=== PATIENT | male | born 1995 | race Two or more races ===

== ENCOUNTER 2016-09-16 15:02 | Emergency (ER) | payer MEDICAID ==
[~2016-09-16] VITALS: Ht 167.6 cm; Wt 61.2 kg
[2016-09-16 16:45] VITALS: BP 152/74
== END 2016-09-16 18:25 | disposition home or self-care (01) ==
LOC: ER 15:04
DX: S90.111A Contusion of right great toe without damage to nail, initial encounter (principal); W51.XXXA Accidental striking against or bumped into by another person, initial encounter; Y93.89 Activity, other specified; Y99.8 Other external cause status; Y92.89 Other specified places as the place of occurrence of the external cause
CPT/HCPCS: 73630

== ENCOUNTER 2016-12-27 22:37 | Emergency (ER) | payer MEDICAID ==
[~2016-12-27] VITALS: Ht 167.6 cm; Wt 63.5 kg
[2016-12-27 22:54] VITALS: BP 131/84
[2016-12-28] MEDS ORDERED: IBUPROFEN 600 MG TAB PO ONE (03:15)
[2016-12-28] MEDS ORDERED: CYCLOBENZAPRINE HCL 10 MG TAB PO ONE (03:15)
== END 2016-12-28 04:15 | disposition home or self-care (01) ==
LOC: ER 22:37
DX: S92.424A Nondisplaced fracture of distal phalanx of right great toe, initial encounter for closed fracture (principal); S30.0XXA Contusion of lower back and pelvis, initial encounter; W18.39XA Other fall on same level, initial encounter; Y93.89 Activity, other specified; Y92.89 Other specified places as the place of occurrence of the external cause; Y99.8 Other external cause status; Y93.66 Activity, soccer
CPT/HCPCS: 72100; 73620

== ENCOUNTER 2021-07-11 15:24 | Emergency (ER) | payer MEDICAID ==
[~2021-07-11] VITALS: Ht 167.6 cm; Wt 68.0 kg
[2021-07-11 20:25] VITALS: BP 141/90
== END 2021-07-11 20:36 | disposition home or self-care (01) ==
LOC: ER 15:24
DX: S93.502A Unspecified sprain of left great toe, initial encounter (principal); W22.8XXA Striking against or struck by other objects, initial encounter; Y93.89 Activity, other specified; Y92.89 Other specified places as the place of occurrence of the external cause; Y99.8 Other external cause status
CPT/HCPCS: 73660